=== PATIENT | female | born 1990 | race Caucasian/White ===

== ENCOUNTER 2018-07-19 03:40 | Inpatient (IN) | payer BC, MEDICAID, SELFPAY ==
[2018-07-19] MEDS: Lactated Ringers 1,000 ML 50 ML IV (04:15)
[2018-07-19] MEDS: Ondansetron 4 MG/2 ML Vial IV (04:47)
[2018-07-19 04:51] VITALS: BMI 26.3
[2018-07-19 05:12] LABS: Absolute Neutrophil Count 7.9 X10^3/uL (2.0-7.7); Basophil# 0.02 X10^3/uL; Basophil% 0.2 % (0-1); Eosinophils% 0.9 % (0-5); Hematocrit 36.4 % (37-47); Hemoglobin 12.2 g/dl (12.0-15.0); Lymphocyte % 16.9 % (19-41); Mean Corp Hgb Conc 33.5 g/gl (32-36); Mean Corpuscular Hgb 29.8 pg (27.0-32.0); Mean Platelet Vol. 10.9 fl (6.2-12.0); Monocyte# 0.72 X10^3/uL; Monocyte% 6.8 % (0-10); Neutrophil # 7.87 X10^3/uL (2.7-7.7); Neutrophil % 74.1 % (47-70); Platelet Count 248 K/mm3 (150-450); RBC Distribution Width CV 14.1 % (11.6-14.6); RBC Distribution Width SD 44.8 fl (35.1-43.9); Red Blood Count 4.09 M/mm3 (4.2-5.4); White Blood Count 10.6 K/mm3 (4.4-11.0)
[2018-07-19 05:19] LABS: POSITIVE COUNT NO; POSITIVE DIFFERENTIAL NO; POSITIVE MORPHOLOGY NO
[2018-07-19] MEDS: Oxytocin 30 units/NS 500 ml 30 UNITS/500 ML IV.SOLN 334 UNITS IV (05:29)
[2018-07-19] MEDS: Oxytocin 30 units/NS 500 ml 30 UNITS/500 ML IV.SOLN 167 UNITS IV (05:59)
--- NOTE | 2018-07-19 06:17 | HP.PCM_ITS ---
- Problem List (1) Post-dates Status: Acute History Date of Admission: 07/19/18 Final LISSET: 07/11/18 Final LISSET Source: LMP Gestational age: 41 Weeks and 1 Days History of this : This is a 28 year-old, G [2], P [1001], at 41w1d weeks gestational age by LMP presented to L&D with complaint of uterine contractions and SROM around 0230 this am. Fluid clear at home and after ROM uterine contractions increased in intensity. and Deputy Commissioner at bedside. Allergies adhesive tape Allergy (Verified 07/19/18 04:52) Hives Home Medications: Home Medications Ranitidine [Zantac] 1 tab PO BID 05/03/15 Vits [Prenatabs FA] 1 tablet PO DAILY 07/19/18 Smoking Status: Never smoker Alcohol: None Number of Fetus(es): 1 Heart Tracin, minimal variability, accels, occasional variable and late decel. Category 2 FHT TOCO Analysis: Every 2-3 minutes History Past Pregnancies: Past Pregnancies Delivery Date Name GA/Weeks Outcome Route Weight Infant Gender Labor Length Anesthesia Delivery Location Provider FOB Labs: GBS negative 1hr GCT 67 CF negative O positive, antibody screen negative RPR negative Rubella Immune HBsAG negative HIV negative GC/CT negative Expected Infant Delivery Method: Spontaneous Vaginal Review of Systems Constitutional: Denies: Chills, Fever, Weight Change HEENT: Denies: Head Aches, Sinus Congestion, Sinus Drainage Respiratory: Denies: Cough, Shortness of breath at rest, Sputum production Gastrointestinal: Reports: Abdominal Pain. Denies: Nausea, Vomiting Genitourinary: Denies: Dysuria Psychiatric: Denies: Anxiety, Depression, Homicidal Ideations, Suicidal Ideations Physical Exam General: Alert, Oriented x3, No apparent distress HEENT: Atraumatic, Normocephalic. Negative for: Thyromegaly, Lymphadenopathy Cardiovascular: Regular rate, Regular Rhythm, No murmurs Lungs: Clear to auscultation, Normal air movement, No rhonchi, No wheeze Abdomen: Bowel Sounds Present, Gravid Extremities:: No edema CNC MAINTENANCE TECHNICIAN: Normal external genitalia Estimated gestational size: Large for gestational age Presentation: Cephalic Cervix Dilation (cm): 10 Station: 2 Effacement (%): 100 Assessment/Plan All Active Problems Post-dates (Acute) This is a 28 year-old, G [2], P [1001], at 41 weeks 1 day gestational age by LMP A: Active Labor Meconium stained fluid P: 1) Admit to L&D 2) Routine labs 3) Pain management, nitrous upon request 4) notified of patient in labor. 5) Anticipate vaginal delivery soon.
--- NOTE | 2018-07-19 06:39 | OP.PCM_ITS ---
Problem List (1) Post-dates Status: Acute (2) Meconium stained amniotic fluid, delivered, current hospitalization Status: Acute (3) (normal spontaneous vaginal delivery) Status: Acute (4) First degree perineal laceration during delivery Status: Acute Vaginal Delivery Maternal Presentation: Active Labor, Spontaneous Rupture of Membranes Amniotic Membrane Rupture Type: Spontaneous at home Rupture of Membrane time: 0230 Amniotic Fluid Description: Clear - at home and upon admission, Moderate meconium - near delivery meconium fluid present. Final LISSET: 07/11/18 Final LISSET Source: LMP Gestational age: 41 Weeks and 1 Days Date of Procedure: 07/19/18 Pre-Operative Diagnosis: Spontaneous Rupture of Membranes Post-Operative Diagnosis: Surgery/ Procedure Performed: Spontaneous Vaginal Delivery - Precipitous Type of Anesthesia: None Description of Procedure: Arrived to [facility] with SROM of clear fluid at home around 0230 this am and 4cm dilated. Progressed to complete in approximately 30 minutes with strong urge to push. Meconium fluid present. Precipitous of viable male over 1st degree perineal laceration. Nitrous oxide for pain management. Infant head delivered and body forth coming. CAN x1, delivered through. Placed on maternal abdomen, strong cry. Mouth and nares suctioned for secretions. APGARS 8,9. Pitocin started for active 3rd stage management. Cord clamped and cut after pulsation ceased. Placenta delivered with maternal effort, 3 vessel cord via [place] intact. Perineum inspected and revealed first degree perineal laceration and right labial laceration, repaired with 3.0 vicryl and lidocaine. Patient tolerated well. Fundus firm. Vaginal sweep complete. Sponge and instrument count correct. Family bonding well. Mom and baby stable. initiated. notified. Benny Roman present for delivery. Presentation: Vertex Placental Delivery Description: Spontaneous Placenta Disposition: [facility] Cord Vessel Description: 3 Vessels Cord Entanglement: Around neck x 1, loose Estimated Blood Loss: 200 ml Infant A gender: Male (1 minute): 8 (5 minute): 9 Episiotomy Description: None Laceration: Perineal Extension/lac, 1st degree Medications given after delivery: IV Pitocin
[2018-07-19] MEDS: Dibucaine 30 GM Tube 1 APPLIC TOPICAL (08:44)
[2018-07-19 12:05] VITALS: BP 111/65; PULSE 78; RESP 16; TEMP 37.1
[2018-07-19] MEDS: Ibuprofen 600 MG Tablet PO ×2 (15:33→22:08)
[2018-07-19 16:00] VITALS: BP 114/69; PULSE 83; RESP 16; TEMP 36.9; O2SAT 96
[2018-07-19 19:37] VITALS: BP 104/74; PULSE 81; RESP 18; TEMP 36.6
[2018-07-19 23:38] VITALS: BP 93/59; PULSE 73; RESP 15; TEMP 36.7; O2SAT 97
[2018-07-20] MEDS: Senna/Docusate Sodium 1 Tablet PO (03:38)
[2018-07-20 03:43] VITALS: BP 103/64; PULSE 67; RESP 15; TEMP 36.7; O2SAT 97
--- NOTE | 2018-07-20 03:43 | NURSING ---
PHQ9 questions and resources papers given to pt. for scoring on her PHQ2 questions. Pt. will fill out in the morning and return to RN.
[2018-07-20] MEDS: Ibuprofen 600 MG Tablet PO (04:15)
[2018-07-20 08:12] VITALS: BP 102/63; PULSE 74; RESP 36; TEMP 36.6
--- NOTE | 2018-07-20 08:58 | PCM.PN.OB ---
Patient Problems: Active and Suspected Problems Post-dates (Acute) Meconium stained amniotic fluid, delivered, current hospitalization (Acute) (normal spontaneous vaginal delivery) (Acute) First degree perineal laceration during delivery (Acute) Subjective: Doing well per patient and nursing staff. Ambulating and taking PO without difficulty. Pain controlled. . Planning D/C home today. - Physical Exam General: Alert, Oriented x3, Cooperative HEENT: Atraumatic Neck: Trachea Midline Lungs: Clear to auscultation, Normal air movement, No rhonchi, No wheeze Cardiovascular: Regular rate, Regular Rhythm, No murmurs Abdomen: Bowel Sounds Present, Soft, - - Fundus firm 2 below U Extremities: No edema Psych/Mental Status: Normal Affect, Appropriate Vital Signs Temp Pulse Resp BP Pulse Ox 97.9 F 74 36 H 102/63 97 07/20/18 08:12 07/20/18 08:12 07/20/18 08:12 07/20/18 08:12 07/20/18 03:43 Oxygen Delivery Method Room Air Weight: 168 lb 3.403 oz Body Mass Index (BMI) 26.3 Intake and Output for Last 24 Hours 07/18/18 07/19/18 07/20/18 23:59 23:59 23:59 Output Total 700 / 700 Balance -700 / -700 Medical Necessity - Tobacco Use Smoking Status: Never smoker Assessment/Plan All Active Problems Post-dates (Acute) Meconium stained amniotic fluid, delivered, current hospitalization (Acute) (normal spontaneous vaginal delivery) (Acute) First degree perineal laceration during delivery (Acute) A:PPD #1 P: 1) Routine and instructions 2) Follow up in 2 weeks and 6 weeks 3) D/C home.
--- NOTE | 2018-07-20 09:04 | DCINST_ITS ---
Discharge Diet: No Restrictions Discharge Activity: Return to Normal Activity, May not drive while taking narcotic pain medications., May Shower, May Take a Tub Bath May resume sexual activity in: No Restrictions, 4-6 weeks Weight Bearing Status: Full weight bearing Additional Activity Instructions:: Nothing in the vagina for 4-6 weeks. You may return to work/school in 6 weeks. Call your doctor if your incision/area has: Continuous Slow Oozing, Sudden Increased Bleeding, Increased Pain/ Swelling, Increased Redness, Foul Smelling Discharge Call your doctor if you observe: Fever of 101 or Higher, Inability to urinate, Inability to have a bowel movement, Using more than one pad per hour, Shortness of breath, Chest pain, Increased palpitations (irregular heartbeat), Calf discomfort, Uncontrolled pain Additional Instructions: If you experience any of the following, contact your healthcare provider. * Bleeding that soaks a pad every hour for 2 hours * Fever 100.4 or higher * Unrelieved incision or abdominal pain * Swelling, redness, discharge or bleeding from your incision or episiotomy site * Your incision begins to separate * Problems urinating (including inability to urinate or burning while urinating). * Visual changes * Severe headache * Flu-like symptoms * Pain or redness in one of both of your breasts * Pain, warmth, tenderness or swelling in your legs, especially the calf area * Frequent nausea and vomiting * Symptoms of depression or anxiety If you experience any of the following, call 911 or go to the nearest Emergency Room. * Chest pain * Problems breathing * Seizure activity * Partial or complete paralysis of a body part, slurred speech, weakness or drooping of the face, or a sudden inability to walk or hold your balance Allergies/Adverse Reactions: Allergies adhesive tape Allergy (Verified 07/19/18 04:52) Hives Medications to take at Discharge Ranitidine [Zantac] 1 tab PO BID 05/03/15 Vits [Prenatabs FA ] 1 tablet PO DAILY 07/19/18 Please Follow Up With: Freya Dunne CNM When: Call to make an appointment with your doctor in 2 weeks and 6 weeks. Primary Care Physician: Care Physician,No Primary [Primary Care Provider] - Test Results: Test results from this visit will be discussed in further detail at your follow- up appointment, if applicable.
[2018-07-20] MEDS: Prenatal Vits Tablet 1 TABLET PO (09:45)
[2018-07-20 15:01] VITALS: BP 110/62; PULSE 74; RESP 16; TEMP 36.5
--- NOTE | 2018-07-25 16:56 | NURSING ---
ENRIQUE left Mary Lou RN IBCLC
== END 2018-07-20 15:40 | disposition home or self-care (01) | DRG 807 ==
PROVIDERS: Admitting Provider Obstetrics & Gynecology; Referring Provider Obstetrics & Gynecology; Visit Provider Obstetrics & Gynecology
DX: O48.0 Post-term pregnancy (principal); O62.3 Precipitate labor; O77.0 Labor and delivery complicated by meconium in amniotic fluid; O69.81X0 Labor and delivery complicated by cord around neck, without compression, not applicable or unspecified; O36.63X0 Maternal care for excessive fetal growth, third trimester, not applicable or unspecified; O70.0 First degree perineal laceration during delivery; Z3A.41 41 weeks gestation of pregnancy; Z37.0 Single live birth
CPT/HCPCS: 59025; 59050; 85025; 86850; 86900; 99218; J7120; G0378; J2405

== ENCOUNTER → 2024-12-20 | Outpatient (CLI) | payer OTHER, SELFPAY | END | disposition home or self-care (01) | PROVIDERS: Referring Provider Advanced Practice Midwife; Visit Provider Advanced Practice Midwife | DX: O99.283 Endocrine, nutritional and metabolic diseases complicating pregnancy, third trimester (principal); E07.9 Disorder of thyroid, unspecified; Z3A.31 31 weeks gestation of pregnancy | CPT/HCPCS: 36415 ==

== ENCOUNTER 2025-02-14 15:54 | Inpatient (IN) | payer OTHER, SELFPAY ==
[2025-02-14] VITALS (40 sets, daily range): BP systolic 111–136; BP diastolic 57–81; PULSE 69–101; RESP 14–16; TEMP 36.4–36.9; O2SAT 95–100; BMI 26.2
[2025-02-14] MEDS: Lactated Ringers 1,000 ML 50 ML IV (16:40)
[2025-02-14 17:05] LABS: Hematocrit 37.2 % (37-47); Hemoglobin 12.8 g/dL (12.0-15.0); Immature Granulocytes Count 0.290 X10^3/uL (0.0-0.0); Mean Corp Hgb Conc 34.4 g/dL (32-36); Mean Corpuscular Volume 92.3 fL (81-99); Mean Platelet Vol. 9.9 fl (6.2-12.0); NRBC Flagged by Analyzer 0 % (0-5); Platelet Count 273 K/mm3 (150-450); RBC Distribution Width CV 12.9 % (11.6-14.6); RBC Distribution Width SD 43.7 fl (35.1-43.9); Red Blood Count 4.03 M/mm3 (4.2-5.4); White Blood Count 13.6 K/mm3 (4.4-11.0)
[2025-02-14 17:41] LABS: Syphilis Antibodies Nonreactive (Nonreactive)
--- NOTE | 2025-02-14 17:54 | PCM.HP.OB ---
HPI - General General Date of Admission: 02/14/25 Date of Service: 02/14/25 Chief Complaint: labor HPI Narrative CARLY MEJIA, is a 34 F who presents with painful ctx's. No other complaints. [facility] Medical History (Updated 02/14/25 @ 18:[address] Briana Eldridge, DO) Thyroid disorder Headache Home Medications ?Medication ?Instructions ?Recorded ?Last Taken ?Type vits,calcium no.78-iron 1 tab PO DAILY 07/19/18 02/14/25 08:00 History fumarate-folic acid 29 mg-1 mg 1 TAB tablet (Prenatabs FA) aspirin 81 mg tablet,delayed 81 mg PO DAILY 02/14/25 02/14/25 08:56 History release (Adult Low Dose Aspirin) 81 mg labetaloL PO PRN palpatations 02/14/25 Unknown History omeprazole magnesium 20 mg 20 mg PO DAILY 02/14/25 02/11/25 07:00 History tablet,delayed release (Prilosec 20 mg OTC) Allergy/AdvReac Type Severity Reaction Status Date / Time adhesive tape Allergy Hives Verified 02/14/25 13:54 Surgical History (Updated 02/14/25 @ 14:16 by Mary Chakraborty) History of surgery Social History Smoking Status: Never smoker History Elective abortions Hx Para 2 Spontaneous abortions Hx # Term Pregnancies Ectopic pregnancies Hx # Pregnancies Multiple births # of living children NST FHR Rate Baby A Baseline: 120 Variability:: Moderate Accelerations:: 15 x 15 Decelerations:: None NST Reactive:: Yes FHR Category:: Category I Uterine Activity:: ctx q 2-3 min Vital Signs Vital Signs Vital Signs: 02/14/25 13:59 02/14/25 13:59 02/14/25 13:59 Temperature Temperature Source Pulse Rate 94 Respiratory Rate Blood Pressure 122/77 H BP Systolic 122 BP Diastolic 77 Pulse Ox 95 02/14/25 16:58 02/14/25 16:58 02/14/25 16:58 Temperature Temperature Source Temporal Pulse Rate 69 Respiratory Rate Blood Pressure 115/63 BP Systolic 115 BP Diastolic 63 Pulse Ox 02/14/25 16:58 02/14/25 16:58 Temperature 98.5 F Temperature Source Pulse Rate Respiratory Rate 16 Blood Pressure BP Systolic BP Diastolic Pulse Ox Weight Weight: 167 lb 8.821 oz Body Mass Index (BMI) 26.2 PRE- weight 144 lb PRE- Body Mass Index 22.6 (BMI) Physical Exam Const alert and no apparent distress Constitutional Narrative: uncomfortable with ctx's Resp normal respiratory effort Narrative: Cvx 5/70/-1, head well applied, BBOW Labs Labs Labs: Blood Type O POSITIVE Antibody Screen NEGATIVE Hct, (37-47) 37.2 % Hgb, (12.0-15.0) 12.8 g/dL Syphilis Total Ab, (Nonreactive) Nonreactive Rhogam given: No Miscellaneous Test, (.) COMMENT Assessment & Plan (1) Uterine contractions: PLAN: Patient presented with contractions and made cervical change from 4 cm to 5 cm. AROM performed in usual fashion after discussion with patient, and consent obtained. AROM for small amount of clear fluid. Category 1 tracing. Patient plans unmedicated . Continue current management. Pelvis adequate and EFW < 4500 grams. GBS negative. (2) Thyroid disorder: (3) History of precipitous delivery: (4) 39 weeks gestation of :
[2025-02-14] MEDS: Oxytocin 15 Units/NS 250ml 15 UNITS/250 ML IV.SOLN 334 UNITS IV (19:28)
--- NOTE | 2025-02-14 19:39 | EX.PCM.OBVAG ---
Assessment & Plan (1) 39 weeks gestation of : (2) History of precipitous delivery: (3) Thyroid disorder: (4) Uterine contractions: (5) Vaginal delivery: Vaginal Delivery Maternal Presentation Maternal Presentation: Active Labor Vaginal Delivery Information Procedure Performed: Spontaneous Vaginal Delivery Surgeon/Practitioner: Briana Eldridge Date of Procedure: 02/14/25 Pre-Procedure Diagnosis: 39 week gestation, contractions Post-Procedure Diagnosis: As above Type of anesthesia: None Special Medications: None Estimated Blood Loss: 200 mL Fluids Replaced: N/A Findings Description of procedure: The patient was complete and pushing. The head delivered in right occiput anterior position over an intact perineum followed by the shoulders and body without any traction, force, or delay. A vigorous viable female infant was placed on maternal abdomen. The cord was clamped and cut after a 60 second delay. Cord blood was obtained and sent. The placenta delivered with fundal massage and was noted to be normal appearing and intact with a three-vessel cord. Pitocin was running. The fundus was noted to be boggy with brisk bleeding. The uterus was explored without any retained membranes or placenta within the uterus. Methergine and fundal massage were given along with the Pitocin. The uterus then firmed up and bleeding was scant. Vaginal and perineal inspection revealed no lacerations. A vaginal sweep was performed. Sponge count was correct. Procedure findings: Vigorous VFI with Apgars 8, 9 Presentation: Vertex Amniotic Membrane Rupture Type: Artificial Amniotic Fluid Description: Clear Placental Delivery Description: Expressed Specimen collected: No Cord Vessel Description: 3 Vessels Cord Entanglement: None Infant A Gender: Female (1 minute): 8 (5 minute): 9 Delayed Cord Clamping: Yes [employer] Principal chemical preparer: No Post Vaginal Deli Medications given after delivery: IV Pitocin and IM Methergin Episiotomy Description: None Laceration: None Complication Complications: No
[2025-02-14] MEDS: Oxytocin 15 Units/NS 250ml 15 UNITS/250 ML IV.SOLN 83 UNITS IV (19:55)
[2025-02-15 01:30] VITALS: BP 107/63; PULSE 87; RESP 14; TEMP 36.7; O2SAT 97
[2025-02-15 03:20] VITALS: BP 97/72; PULSE 82; RESP 14; TEMP 36.6; O2SAT 98
[2025-02-15 08:07] VITALS: BP 105/68; PULSE 81; RESP 16; TEMP 36.6; O2SAT 98
--- NOTE | 2025-02-15 11:38 | PN.OBGYN_ITS ---
Subjective Subjective Doing well per patient and nursing staff. Ambulating and taking PO without difficulty. Voiding and passing flatus. Pain controlled. , services for assistance. Denies headache, visual changes, chest pain, shortness of breath, leg pain or increased bleeding. Lochia normal. Objective Data Objective Data Vital Signs: Vital Signs Temp Pulse Resp BP Pulse Ox O2 Del Method 97.9 F 81 16 105/68 98 Room Air 02/15/25 08:07 02/15/25 08:07 02/15/25 08:07 02/15/25 08:07 02/15/25 08:07 02/15/25 08:07 Oxygen Delivery Method Room Air Weight: 167 lb 8.821 oz Body Mass Index (BMI) 26.2 Intake & Output: Intake and Output for Last 24 Hours 02/13/25 02/14/25 02/15/25 23:59 23:59 23:59 Intake Total 540.3 / 540.3 Output Total 400 / 400 Balance 140.3 / 140.3 Lab / Micro Data 02/14/25 16:40 Labs: Laboratory Results - last 24 hr 02/14/25 16:40: WBC 13.6 H, RBC 4.03 L, Hgb 12.8, Hct 37.2, MCV 92.3, MCH 31.8, MCHC 34.4, RDW Std Deviation 43.7, RDW Coeff of [place] 12.9, Plt Count 273, MPV 9.9, Immature Gran % (Auto) 2.100 H, Neut % (Auto) 74.9 H, Lymph % (Auto) 16.4 L , [place] % (Auto) 4.8, Eos % (Auto) 1.2, Baso % (Auto) 0.6, Absolute Neuts (auto) 10.2 H, Absolute Lymphs (auto) 2.24, Nucleated RBC % 0, Syphilis Total Ab Nonreactive, Blood Type O POSITIVE, Antibody Screen NEGATIVE ROS Constitutional Constitutional: Reports systems reviewed and no addt'l complaints, except as documented; Denies headache(s) Eyes Eyes: Denies acute decrease in peripheral vision, blurry vision or change in vision ENT HEENT: Reports systems reviewed and no addt'l complaints, except as documented Cardiovascular Cardiovascular: Denies chest pain or dizziness Respiratory/Chest Respiratory/Chest: Denies cough, dyspnea, dyspnea on exertion, shortness of breath at rest or shortness of breath with exertion Gastrointestinal Gastrointestinal: Denies abdominal pain, diarrhea, nausea or vomiting Genitourinary Genitourinary: Denies abdominal discomfort Musculoskeletal Musculoskeletal: Denies limited range of motion Integumentary Integumentary: Reports systems reviewed and no addt'l complaints, except as documented Neurologic Neurologic: Reports systems reviewed and no addt'l complaints, except as documented Psychiatric Psychiatric: Reports systems reviewed and no addt'l complaints, except as documented Endocrine Endocrinology: Reports systems reviewed and no addt'l complaints, except as documented Hematologic/Lymphatic Hematologic/Lymphatic: Reports systems reviewed and no addt'l complaints, except as documented Allergic/Immunologic Allergic/Immunologic: Reports systems reviewed and no addt'l complaints, except as documented Physical Exam Const alert and oriented x3 General Appearance: cooperative Orientation / Consciousness: awake, oriented to person, oriented to place and oriented to time Exam Limitations: no limitations HEENT normocephalic Head and Scalp: normal to inspection, normocephalic and atraumatic Face and Sinus: normal facial exam Eyes General Eye: normal appearance of both eyes Neck full ROM Chest Chest: symmetrical chest wall rise Resp normal respiratory effort and normal air movement Auscultation: clear to auscultation bilaterally Cardio regular rate, regular rhythm, S1 normal heart sound, S2 normal heart sound, no murmurs, no rub, no gallops and no clicks GI normal to inspection, nondistended, normoactive bowel sounds and non-tender GI Narrative: Fundus firm 2 below U appearance of the vagina normal Narrative: Normal lochia rubra Bladder / Kidney Exam: no CVA tenderness Back/Spine normal ROM Extremity normal to inspection and full ROM Skin no rashes or lesions noted Neuro oriented x3, CN's II-XII intact bilaterally and moves all extremities Sensorium / Orientation: awake, alert and oriented to person Motor Exam: clonus absent Deep Tendon Reflexes: Rt Patellar (L4): 2+ and Lt Patellar (L4): 2+ Assessment & Plan (1) Vaginal delivery: PLAN: Plan 1) Routine care, PPD #1 2) Vitals signs stable 3) Pain controlled 4) , services PRN 5) D/C home 6) Follow up in 2 weeks and 6 weeks
--- NOTE | 2025-02-15 11:38 | DS.PCM_ITS ---
Providers Date of Admission: 02/14/25 Primary Care Physician: Cindy Primary Care Phys Reason For Visit: VAGINAL DELIVERY Diagnosis Discharge Diagnosis (1) Vaginal delivery: Status: Acute Code(s): O80 - Encounter for full-term uncomplicated delivery Plan 1) Routine care, PPD #1 2) Vitals signs stable 3) Pain controlled 4) , services PRN 5) D/C home 6) Follow up in 2 weeks and 6 weeks Medications at Discharge Home Medications vits,calcium no.78-iron fumarate-folic acid 29 mg-1 mg tablet (Prenatabs FA) 1 tab PO DAILY 07/19/18 labetaloL PO PRN palpatations 02/14/25 acetaminophen 500 mg tablet 1,000 mg (2 x 500 mg) PO Q6H PRN PRN Pain 1-10 Or Fever #0 tabs 02/15/25 ibuprofen 600 mg tablet 600 mg PO Q6H PRN PRN Pain Score 1-10 #0 tabs 02/15/25 Weight / BMI Weight Weight: 167 lb 8.821 oz Body Mass Index (BMI) 26.2 PRE- weight 144 lb PRE- Body Mass Index 22.6 (BMI) ABG / Lab / Microbiology Data 02/14/25 16:40 Laboratory: Laboratory Results - last 24 hr 02/14/25 16:40: WBC 13.6 H, RBC 4.03 L, Hgb 12.8, Hct 37.2, MCV 92.3, MCH 31.8, MCHC 34.4, RDW Std Deviation 43.7, RDW Coeff of [place] 12.9, Plt Count 273, MPV 9.9, Immature Gran % (Auto) 2.100 H, Neut % (Auto) 74.9 H, Lymph % (Auto) 16.4 L , [place] % (Auto) 4.8, Eos % (Auto) 1.2, Baso % (Auto) 0.6, Absolute Neuts (auto) 10.2 H, Absolute Lymphs (auto) 2.24, Nucleated RBC % 0, Syphilis Total Ab Nonreactive, Blood Type O POSITIVE, Antibody Screen NEGATIVE D/C Instructions Discharge Activity: Return to Normal Activity, May Drive, May Shower and May Take a Tub Bath May resume sexual activity in: 6 weeks Weight Bearing Status: Full weight bearing Call your doctor if you observe: Fever of 101 or Higher, Inability to urinate, Using more than 1 pad per hour, Shortness of breath, Chest pain, Increased palpitations (irregular heartbeat), Calf discomfort and Uncontrolled pain DC O2, CPAP, BIPAP Needs Home O2 Discharge instructions: No Please Follow Up With: Freya Dunne CNM When: 2 week virtual visit and 6 week visit Meaningful Use Info Meaningful Use Meaningful Use Diagnoses (Choose all that apply): None applicable Discharge Plan Admission Admit Date/Time: 02/14/25 15:54 Primary Reason for Your Visit: Vaginal Delivery Attending Provider: Briana Eldridge Primary Care Provider: Care Physician,No Primary Discharge Orders/Prescriptions Prescriptions: New acetaminophen 500 mg Tablet 1,000 mg PO Q6H PRN PRN (Reason: Pain 1-10 Or Fever) Qty: 0 0RF ibuprofen 600 mg Tablet 600 mg PO Q6H PRN PRN (Reason: Pain Score 1-10) Qty: 0 0RF Continued Prenatabs FA 1 TABLET tablet 1 tab PO DAILY labetaloL PO PRN Discontinued omeprazole magnesium [Prilosec OTC] 20 mg tablet,delayed release (DR/EC) 20 mg PO DAILY aspirin [Adult Low Dose Aspirin] 81 mg tablet,delayed release (DR/EC) 81 mg PO DAILY Referrals / Follow Up: Care Physician,No Primary [Primary Care Provider, Medical]
[2025-02-15 12:20] VITALS: BP 102/71; PULSE 65; RESP 16; TEMP 36.2; O2SAT 98
[2025-02-15 16:45] VITALS: BP 109/77; PULSE 86; RESP 16; TEMP 36.6; O2SAT 97
[2025-02-15 20:45] VITALS: BP 100/76; PULSE 97; RESP 16; TEMP 36.4; O2SAT 98
[2025-02-16 02:12] VITALS: BP 103/78; PULSE 73; RESP 16; TEMP 36.6; O2SAT 97
[2025-02-16 09:40] VITALS: BP 110/71; PULSE 79; RESP 16; TEMP 36.1
== END 2025-02-16 09:44 | disposition home or self-care (01) | DRG 807 ==
LOC: WPOUT 15:59 → WP 15:59
PROVIDERS: Admitting Provider Obstetrics & Gynecology; Referring Provider Obstetrics & Gynecology; Visit Provider Obstetrics & Gynecology
DX: O99.892 Other specified diseases and conditions complicating childbirth (principal); Z37.0 Single live birth; E07.9 Disorder of thyroid, unspecified; N85.8 Other specified noninflammatory disorders of uterus; O99.284 Endocrine, nutritional and metabolic diseases complicating childbirth; Z3A.39 39 weeks gestation of pregnancy; Z87.59 Personal history of other complications of pregnancy, childbirth and the puerperium
CPT/HCPCS: 59025; 59050; 85025; 86780; 86850; 86900; 86901; 99221; G0378